=== PATIENT | male | born 1975 | race Caucasian/White ===

== ENCOUNTER → 2021-09-06 13:20 | Outpatient (BNVA) | payer OTHER, SELFPAY | PROVIDERS: Visit Provider Nurse Practitioner | DX: Z20.822 Contact with and (suspected) exposure to COVID-19 (principal) | CPT/HCPCS: 87635 ==

== ENCOUNTER 2021-09-08 08:37 | Outpatient (CLI) | payer OTHER, SELFPAY ==
[2021-09-08 08:50] VITALS: BP 114/75; PULSE 71; RESP 18; TEMP 36.2; O2SAT 97; BMI 30.8
[2021-09-08 09:25] VITALS: BP 121/72; PULSE 72; RESP 16; TEMP 36.8; O2SAT 97
[2021-09-08 10:20] VITALS: BP 121/76; PULSE 70; RESP 16; TEMP 36.9; O2SAT 97
== END 2021-09-08 08:38 | disposition home or self-care (01) ==
LOC: OPS 08:38
PROVIDERS: PCP Nurse Practitioner; Visit Provider Nurse Practitioner
DX: U07.1 COVID-19 (principal)
CPT/HCPCS: 96365